=== PATIENT | female | born 1970 | race Hispanic/Latino ===

== ENCOUNTER 2024-10-25 16:36 | Emergency (ER) | payer OTHER ==
--- NOTE | 2024-10-25 17:42 | RAD REPORT ---
Exam:Abdomen 1 View (KUB) Clinical history: Swallowed foreign body FINDINGS: The bowel gas pattern is unremarkable A radiopaque foreign body is not visualized
--- NOTE | 2024-10-25 17:42 | RAD REPORT ---
Procedure: Chest Pa And Lat (2 Views) HISTORY: Chest pain COMPARISON: none FINDINGS: The lungs appear clear of acute infiltrate. No significant pleural effusion noted. The heart is normal size. IMPRESSION: No acute abnormality is displayed.
--- NOTE | 2024-10-25 17:43 | RAD REPORT ---
EXAM:Neck Soft Tissue CLINICAL HISTORY: Swallowed foreign body FINDINGS: A radiopaque foreign body is not visualized
--- NOTE | 2024-10-25 18:04 | ER ---
Nurse's Notes [facility] Name: Mayela Lowe Age: 54 yrs Sex: Female : 1970 Arrival Date: 10/25/2024 Time: 16:36 Bed IW2 Private MD: Diagnosis: Encounter for screening for other disorder-foreign body ingestion Presentation: 10/25 17:00 Chief complaint: Patient states: was at the dentist and the metal tip of the instrument cm10 they were using broke. pt was sent to the ER due to not knowing if the pt swallowed it. estimated to be approximately 2-3 mm. Coronavirus screen: Client denies travel out of the [place] in the last 14 days. Ebola Screen: Patient denies travel to an Ebola-affected area in the 21 days before illness onset. Initial Sepsis Screen: Does the patient meet any 2 criteria? No. Patient's initial sepsis screen is negative. Does the patient have a suspected source of infection? No. Patient's initial sepsis screen is negative. Risk Assessment: Do you want to hurt yourself or someone else? Patient reports no desire to harm self or others. Onset of symptoms was October 25, 2024. 17:00 Method Of Arrival: Ambulatory cm10 17:00 Acuity: JARRED 4 cm10 Triage Assessment: 17:01 General: Appears in no apparent distress. comfortable, Behavior is calm, cooperative, cm10 appropriate for age. Pain: Denies pain. Neuro: No deficits noted. Level of Consciousness is awake, alert, obeys commands, Oriented to person, place, time, situation, Appropriate for age. Respiratory: No deficits noted. Airway is patent Respiratory effort is even, unlabored, Respiratory pattern is regular, symmetrical. Historical: - Allergies: 17:01 No Known Allergies; cm10 - PMHx: 17:01 Rheumatoid arthritis; cm10 - PSHx: 17:01 section; cm10 - Immunization history:: Adult Immunizations up to date. - Infectious Disease History:: Denies. - Social history:: Smoking status: Patient denies any tobacco usage or history of. Screenin:17 [facility] ED Fall Risk Assessment (Adult) History of falling in the last 3 months, kb3 including since admission No falls in past 3 months (0 pts) Confusion or Disorientation No (0 pts) Intoxicated or Sedated No (0 pts) Impaired Gait No (0 pts) Mobility Assist Device Used No (0 pt) Altered Elimination No (0 pt) Score/Fall Risk Level 0 - 2 = Low Risk Oriented to surroundings. Abuse screen: Denies threats or abuse. Denies injuries from another. Nutritional screening: No deficits noted. Tuberculosis screening: No symptoms or risk factors identified. Assessment: 18:10 General: Pt re-assessed and discharged from [facility] by Dr Nelson. kb3 18:10 GI: Patient currently denies abdominal pain, nausea, pain, vomiting. kb3 Vital Signs: 17:00 BP 132 / 93; Pulse 72; Resp 14; Temp 98.4(O); Pulse Ox 100% on R/A; Weight 61.69 kg; cm10 Height 4 ft. 11 in. ; Pain 0/10; 17:00 Body Mass Index 27.47 (61.69 kg, 149.86 cm) cm10 17:00 Pain Scale: Adult cm10 ED Course: 16:40 Patient arrived in ED. im 16:46 Pancho Nelson MD is Attending Physician. iwona 17:01 Triage completed. cm10 17:01 Arm band placed on right wrist. Patient placed in waiting room. cm10 17:37 Chest Pa And Lat (2 Views) XRAY In Process Unspecified. EDMS 17:37 Neck Soft Tissue XRAY In Process Unspecified. EDMS 17:37 Abdomen 1 View (KUB) In Process Unspecified. EDMS 18:17 Patient has correct armband on for positive identification. Provided Education on: kb3 Follow up. 18:17 No provider procedures requiring assistance completed. Patient did not have IV access kb3 during this emergency room visit. Administered Medications: No medications were administered Medication: 18:17 VIS not applicable for this client. kb3 Outcome: 18:04 Discharge ordered by . [facility] 18:17 Discharged to home ambulatory, kb3 18:17 Condition: improved 18:17 Discharge instructions given to patient, Instructed on discharge instructions, follow up and referral plans. Demonstrated understanding of instructions, follow-up care, 18:19 Patient left the ED. kb3 Signatures: Dispatcher [employer] Pancho Norman MD MD cha Bradberry, Kelly, RN RN kb3 Nena Ohara Clarissa RN RN cm10
--- NOTE | 2024-10-25 18:04 | EDPHYS ---
Physician Documentation [facility] Name: Mayela Lowe Age: 54 yrs Sex: Female : 1970 Arrival Date: 10/25/2024 Time: 16:36 Bed IW2 Private MD: ED Physician Pancho Nelson HPI: 10/25 17:59 This 54 yrs old Female presents to ER via Ambulatory with complaints of iwona Foreign Body In Throat - Dental tip, Foreign Body - in mouth dental tip. 17:59 The patient or guardian reports the patient has a suspected foreign body, the patient iwona might have ingested an object, the patient might have inhaled an object, the patient might have swallowed an object, drill bit. The reported likely foreign body is drill. Onset: The symptoms/episode began/occurred just prior to arrival. Current symptoms: none. Treatment Prior to Arrival: none. The patient has not experienced similar symptoms in the past. Historical: - Allergies: 17:01 No Known Allergies; cm10 - PMHx: 17:01 Rheumatoid arthritis; cm10 - PSHx: 17:01 section; cm10 - Immunization history:: Adult Immunizations up to date. - Infectious Disease History:: Denies. - Social history:: Smoking status: Patient denies any tobacco usage or history of. ROS: 18:00 Constitutional: Negative for fever, chills, and weight loss, Eyes: Negative for injury, iwona pain, redness, and discharge, ENT: Negative for injury, pain, and discharge, Neck: Negative for injury, pain, and swelling, Cardiovascular: Negative for chest pain, palpitations, and edema, Respiratory: Negative for shortness of breath, cough, wheezing, and pleuritic chest pain, Abdomen/GI: Negative for abdominal pain, nausea, vomiting, diarrhea, and constipation, Back: Negative for injury and pain, : Negative for injury, bleeding, discharge, and swelling, MS/Extremity: Negative for injury and deformity, Skin: Negative for injury, rash, and discoloration, Neuro: Negative for headache, weakness, numbness, tingling, and seizure, Psych: Negative for depression, anxiety, suicide ideation, homicidal ideation, and hallucinations, Allergy/Immunology: Negative for hives, rash, and allergies, Endocrine: Negative for neck swelling, polydipsia, polyuria, polyphagia, and marked weight changes, Hematologic/Lymphatic: Negative for swollen nodes, abnormal bleeding, and unusual bruising, Exam: 18:00 Constitutional: This is a well developed, well nourished patient who is awake, alert, iwona and in no acute distress. Head/Face: Normocephalic, atraumatic. Eyes: Pupils equal round and reactive to light, extra-ocular motions intact. Lids and lashes normal. Conjunctiva and sclera are non-icteric and not injected. Cornea within normal limits. Periorbital areas with no swelling, redness, or edema. ENT: Nares patent. No nasal discharge, no septal abnormalities noted. Tympanic membranes are normal and external auditory canals are clear. Oropharynx with no redness, swelling, or masses, exudates, or evidence of obstruction, uvula midline. Mucous membranes moist. Neck: Trachea midline, no thyromegaly or masses palpated, and no cervical lymphadenopathy. Supple, full range of motion without nuchal rigidity, or vertebral point tenderness. No Meningismus. Chest/axilla: Normal chest wall appearance and motion. Nontender with no deformity. No lesions are appreciated. Cardiovascular: Regular rate and rhythm with a normal S1 and S2. No gallops, murmurs, or rubs. Normal PMI, no JVD. No pulse deficits. Respiratory: Lungs have equal breath sounds bilaterally, clear to auscultation and percussion. No rales, rhonchi or wheezes noted. No increased work of breathing, no retractions or nasal flaring. Abdomen/GI: Soft, non-tender, with normal bowel sounds. No distension or tympany. No guarding or rebound. No evidence of tenderness throughout. Back: No spinal tenderness. No costovertebral tenderness. Full range of motion. Skin: Warm, dry with normal turgor. Normal color with no rashes, no lesions, and no evidence of cellulitis. MS/ Extremity: Pulses equal, no cyanosis. Neurovascular intact. Full, normal range of motion., bilateral aka Neuro: Awake and alert, GCS 15, oriented to person, place, time, and situation. Cranial nerves II-XII grossly intact. Motor strength 5/5 in all extremities. Sensory grossly intact. Cerebellar exam normal. Normal gait. Psych: Awake, alert, with orientation to person, place and time. Behavior, mood, and affect are within normal limits. Vital Signs: 17:00 BP 132 / 93; Pulse 72; Resp 14; Temp 98.4(O); Pulse Ox 100% on R/A; Weight 61.69 kg; cm10 Height 4 ft. 11 in. ; Pain 0/10; 17:00 Body Mass Index 27.47 (61.69 kg, 149.86 cm) cm10 17:00 Pain Scale: Adult cm10 MDM: 16:46 Medical Screening Exam initiated [facility] 18:01 Data reviewed: vital signs, nurses notes, radiologic studies, plain films. [facility] Consideration of Admission/Observation Escalation of care including admission/observation considered. I considered the following discharge prescriptions or medication management in the emergency department Medications were administered in the Emergency Department. See MAR. Independent interpretation of the following test(s) in the Emergency Department X-Ray: My interpretation is x rays. Test considered but Not performed: Labs: no labs. Historians other than the Patient: Spouse/Significant Other: spouse well informed. Care significantly affected by the following chronic conditions: rheumotoid. 10/25 16:47 Order name: Chest Pa And Lat (2 Views) XRAY [facility] 10/25 16:47 Order name: Neck Soft Tissue XRAY [facility] 10/25 17:33 Order name: Abdomen 1 View (KUB) EDMS Administered Medications: No medications were administered Disposition Summary: 10/25/24 18:04 Discharge Ordered Notes: Location: Home [facility] Problem: new iwona Symptoms: have improved iwona Condition: Stable iwona Diagnosis - Encounter for screening for other disorder - foreign body ingestion iwona Followup: iwona - With: Private Physician - When: 2 - 3 days - Reason: Recheck today's complaints, Continuance of care, Re-evaluation by your physician Discharge Instructions: - Discharge Summary Sheet iwona - Swallowed Foreign Body, Adult iwona - Swallowed Foreign Body, Adult, [id number] iwona - Foreign Body iwona Forms: - Medication Reconciliation Form iwona - Antibiotic Education iwona - Prescription Opioid Use iwona - Patient Portal Instructions [facility] - Leadership Thank You Letter iwona Signatures: Dispatcher [employer] EDPancho Hagen MD MD cha Martinez, Clarissa, RN RN cm10
[2024-10-28 01:35] VITALS: BP 132/93; TEMP 98.4; O2SAT 100
== END 2024-10-25 18:19 | disposition home or self-care (01) ==
LOC: ER 16:36
DX: Z71.1 Person with feared health complaint in whom no diagnosis is made (principal)
CPT/HCPCS: 70360; 71046; 74018; 99282